=== PATIENT | female | born 1975 | race Caucasian/White ===

== ENCOUNTER 2017-03-05 09:30 | Observation (INO) | payer MEDICAID ==
[2017-03-05] MEDS ORDERED: Sodium Chloride 0.9% 1,000 ML IV ONE (10:11)
[2017-03-05 10:28] LABS: BASO % 0.3 % (0.0-2.0); EOS % 0.4 % (0.0-4.0); LYMPH # 1.2 K/uL (1.0-4.3); LYMPH % 13.3 % (20.0-40.0); MEAN CELL VOLUME 68.6 fL (81.0-99.0); MEAN CORPUSCULAR HEMOGLOBIN 21.9 pg (27.0-31.0); MONO # 0.6 K/uL (0.0-0.8); MONO % 6.1 % (0.0-10.0); RED CELL DISTRIBUTION WIDTH 14.8 % (11.5-14.5); WHITE BLOOD COUNT 9.2 K/uL (4.8-10.8)
[2017-03-05 10:34] LABS: CHLORIDE 102 mmol/L (98-107)
[2017-03-05 10:35] LABS: POTASSIUM 4.1 mmol/L (3.6-5.2); SODIUM 134 mmol/L (132-148)
--- NOTE | 2017-03-05 10:36 | C.PDOC ---
History Of Present Illness 41 y/o female with a hx of , c/o RLQ abdominal pain associated with nausea for 1 day. Patient denies vomiting, fever, chills, diarrhea, or constipation. No complaints. Time Seen by Provider: 03/05/17 10:06 Chief Complaint (Nursing): Abdominal Pain History Per: Patient History/Exam Limitations: no limitations Onset/Duration Of Symptoms: Days (1) Current Symptoms Are (Timing): Still Present Severity: Mild Location Of Pain/Discomfort: RLQ Quality Of Discomfort: "Pain" Associated Symptoms: Nausea. denies: Fever, Vomiting, Diarrhea, Constipation, Urinary Symptoms Recent travel outside of the [place]: No Additional History Per: Patient Abnormal Vaginal Bleeding: No Past Medical History Reviewed: Historical Data, Nursing Documentation, Vital Signs Vital Signs: Last Vital Signs Temp 97.8 F 03/05/17 13:55 Pulse 61 03/05/17 13:55 Resp 18 03/05/17 13:55 BP 150/90 03/05/17 13:55 Pulse Ox 99 03/05/17 15:20 - Medical History PMH: HTN Family History: States: Unknown Family Hx - Social History Hx Tobacco Use: No Hx Alcohol Use: Yes Hx Substance Use: No - Immunization History Hx Tetanus Toxoid Vaccination: No Hx Influenza Vaccination: No Hx Pneumococcal Vaccination: No Review Of Systems Except As Marked, All Systems Reviewed And Found Negative. Constitutional: Negative for: Fever, Chills Cardiovascular: Negative for: Chest Pain Respiratory: Negative for: Cough, Shortness of Breath Gastrointestinal: Positive for: Nausea, Abdominal Pain (RLQ). Negative for: Vomiting, Diarrhea, Constipation Genitourinary: Negative for: Dysuria, Hematuria, Vaginal Discharge, Vaginal Bleeding Skin: Negative for: Rash Psych: Negative for: Anxiety Physical Exam - Physical Exam Appears: Well, Non-toxic, No Acute Distress Skin: Warm, Dry Head: Atraumatic, Normacephalic Oral Mucosa: Moist Chest: Symmetrical Cardiovascular: Rhythm Regular, No Murmur Respiratory: Normal Breath Sounds, No Rales, No Rhonchi, No Wheezing Gastrointestinal/Abdominal: Soft, Tenderness (RLQ tenderness) Back: CVA Tenderness (R) Extremity: Normal ROM (x4) Neurological/Psych: Oriented x3 Gait: Steady ED Course And Treatment - Laboratory Results Result Diagrams: 03/05/17 10:22 03/05/17 10:22 O2 Sat by Pulse Oximetry: 99 (RA) Pulse Ox Interpretation: Normal Medical Decision Making Medical Decision Making: Presents for RLQ pain associated with nausea. HX of . Plans: * CT Abd/Pel IV contrast * Toradol * IV fluids * Blood labs * UA * US pelvis/ transvag DDx: Evaluation for appendicitis. PROCEDURE: CT Abdomen and Pelvis with contrast HISTORY: RLQ pain COMPARISON: Images from CT abdomen and pelvis performed with contrast 02/27/12. TECHNIQUE: Contrast dose: 100 cc Visipaque 320 Radiation dose: Total exam DLP = 298.07 MGy-cm. This CT exam was performed using one or more of the following dose reduction techniques: Automated exposure control, adjustment of the mA and/or kV according to patient size, and/or use of iterative reconstruction technique. FINDINGS: LOWER THORAX: No visible consolidation, pleural effusion, or pneumothorax. LIVER: Several too small to characterize hepatic hypodensities measuring up to approximately 9 mm Hypoattenuation of the liver compatible with hepatic steatosis. GALLBLADDER AND BILE DUCTS: Unremarkable. PANCREAS: Unremarkable. SPLEEN: Unremarkable. ADRENALS: Unremarkable. KIDNEYS AND URETERS: Region of diminished enhancement involving the right posterior kidney which may reflect pyelonephritis. Differential considerations include sequela of vascular insults/infarct or infiltrating process. 14 mm low-density left renal lesion, possibly cyst. No hydronephrosis or obstructing calculus identified. VASCULATURE: No aortic aneurysm. BOWEL: Stomach is nondistended. Lack of oral contrast limits evaluation for bowel pathology. Bowel loops appear within normal limits of caliber without evidence of obstruction. APPENDIX: The appendix appears within normal limits of caliber. No secondary signs of acute appendicitis. PERITONEUM: No significant free fluid. No definite free air. LYMPH NODES: No bulky adenopathy identified. BLADDER: Unremarkable. REPRODUCTIVE: The uterus is present. 14 mm probable left ovarian cyst. BONES: No acute osseous abnormality is detected. OTHER FINDINGS: None. IMPRESSION: Region of diminished enhancement involving the right posterior kidney which may reflect pyelonephritis. Differential considerations include sequela of vascular insults/infarct or infiltrating process/neoplasm. 14 mm low-density left renal lesion, possibly cyst. Several too small to characterize hepatic hypodensities measuring up to approximately 9 mm Hypoattenuation of the liver compatible with hepatic steatosis. Probable 14 mm left ovarian cyst. Pelvic ultrasound may be considered for further evaluation if indicated. Pelvic ultrasound History: Right lower quadrant pain. Evaluate for ovarian torsion. Comparison: None available. Technique: Real-time sonography was performed through the pelvis. Findings: Uterus: 8.6 x 4.6 x 5.7 centimeters. Heterogeneous echotexture. Anteverted. Endometrium measures 8 millimeters, within normal limits. Right ovary: 2.3 x 1.3 x 2.0 centimeters. Normal flow. Left ovary: 2.5 x 1.5 x 3.0 centimeters. Normal flow. Impression: Unremarkable sonographic evaluation of the pelvis. 3:26PM Patient has persistent pain. Will transfer to med/sx observation for pain control, results of ucx and further evaluation by Dr. Davis Spoke to Dr. Diamante Holden Disposition - Disposition Disposition: HOSPITALIZED Disposition Time: 15:28 Condition: FAIR Forms: [facility] (Estonian) - Clinical Impression Clinical Impression: Abdominal pain - Scribe Statement The provider has reviewed the documentation as recorded by the Scribe Adryan roberts All medical record entries made by the Musaibdalia were at my direction and personally dictated by me. I have reviewed the chart and agree that the record accurately reflects my personal performance of the history, physical exam, medical decision making, and the department course for this patient. I have also personally directed, reviewed, and agree with the discharge instructions and disposition.
[2017-03-05 10:37] LABS: ALB/GLOB RATIO 1.1 (1.0-2.1); ALKALINE PHOSPHATASE 57 U/L (38-126); AST/SGOT 49 U/L (14-36); BILIRUBIN,TOTAL 0.7 mg/dL (0.2-1.3); CARBON DIOXIDE 23 mmol/L (22-30); GFR AFRICAN-AMERICAN > 60; RBC URINE 3 /hpf (0-3); TOTAL PROTEIN 8.7 g/dL (6.3-8.3); URINE BACTERIA RARE (<OCC); URINE BILIRUBIN NEGATIVE (NEGATIVE); URINE BLOOD 2+ (NEGATIVE); URINE COLOR Yellow (YELLOW); URINE GLUCOSE (UA) NORMAL (Normal); URINE KETONE TRACE mg/dL (NEGATIVE); URINE LEUKOCYTE ESTERASE NEG Leu/uL (Negative); URINE PROTEIN 1+ mg/dL (NEGATIVE); URINE UROBILINOGEN NORMAL mg/dL (0.2-1.0); WBC URINE 3 /hpf (0-5)
[2017-03-05 10:38] LABS: ALT/SGPT 55 U/L (9-52); BLOOD UREA NITROGEN 9 mg/dL (7-17); CALCIUM 9.4 mg/dl (8.6-10.4); GLUCOSE,RANDOM 101 mg/dL (65-105)
[2017-03-05] MEDS ORDERED: Sodium Chloride 0.9% 1,000 ML ONE (10:46)
[2017-03-05] MEDS ORDERED: Iodixanol 320 MG/ML 100 ML BOTTLE IV ONE (12:12)
--- NOTE | 2017-03-05 12:53 | CT ---
PROCEDURE: CT Abdomen and Pelvis with contrast HISTORY: RLQ pain COMPARISON: Images from CT abdomen and pelvis performed with contrast 02/27/12. TECHNIQUE: Contrast dose: 100 cc Visipaque 320 Radiation dose: Total exam DLP = 298.07 MGy-cm. This CT exam was performed using one or more of the following dose reduction techniques: Automated exposure control, adjustment of the mA and/or kV according to patient size, and/or use of iterative reconstruction technique. FINDINGS: LOWER THORAX: No visible consolidation, pleural effusion, or pneumothorax. LIVER: Several too small to characterize hepatic hypodensities measuring up to approximately 9 mm Hypoattenuation of the liver compatible with hepatic steatosis. GALLBLADDER AND BILE DUCTS: Unremarkable. PANCREAS: Unremarkable. SPLEEN: Unremarkable. ADRENALS: Unremarkable. KIDNEYS AND URETERS: Region of diminished enhancement involving the right posterior kidney which may reflect pyelonephritis. Differential considerations include sequela of vascular insults/infarct or infiltrating process. 14 mm low-density left renal lesion, possibly cyst. No hydronephrosis or obstructing calculus identified. VASCULATURE: No aortic aneurysm. BOWEL: Stomach is nondistended. Lack of oral contrast limits evaluation for bowel pathology. Bowel loops appear within normal limits of caliber without evidence of obstruction. APPENDIX: The appendix appears within normal limits of caliber. No secondary signs of acute appendicitis. PERITONEUM: No significant free fluid. No definite free air. LYMPH NODES: No bulky adenopathy identified. BLADDER: Unremarkable. REPRODUCTIVE: The uterus is present. 14 mm probable left ovarian cyst. BONES: No acute osseous abnormality is detected. OTHER FINDINGS: None. IMPRESSION: Region of diminished enhancement involving the right posterior kidney which may reflect pyelonephritis. Differential considerations include sequela of vascular insults/infarct or infiltrating process/neoplasm. 14 mm low-density left renal lesion, possibly cyst. Several too small to characterize hepatic hypodensities measuring up to approximately 9 mm Hypoattenuation of the liver compatible with hepatic steatosis. Probable 14 mm left ovarian cyst. Pelvic ultrasound may be considered for further evaluation if indicated.
[2017-03-05] MEDS ORDERED: Morphine 4 MG/ML VIAL ONE (14:46)
--- NOTE | 2017-03-05 14:50 | US ---
Pelvic ultrasound History: Right lower quadrant pain. Evaluate for ovarian torsion. Comparison: None available. Technique: Real-time sonography was performed through the pelvis. Findings: Uterus: 8.6 x 4.6 x 5.7 centimeters. Heterogeneous echotexture. Anteverted. Endometrium measures 8 millimeters, within normal limits. Right ovary: 2.3 x 1.3 x 2.0 centimeters. Normal flow. Left ovary: 2.5 x 1.5 x 3.0 centimeters. Normal flow. Impression: Unremarkable sonographic evaluation of the pelvis.
[2017-03-05] MEDS ORDERED: Morphine 4 MG/ML VIAL IVP PRN (21:45)
--- NOTE | 2017-03-05 21:58 | CP.PCM.PN ---
Subjective - Date & Time of Evaluation Date of Evaluation: 03/05/17 Objective - Vital Signs/Intake and Output Vital Signs (last 24 hours): Temp Pulse Resp BP Pulse Ox 97.7 F 61 20 152/90 H 100 03/05/17 17:49 03/05/17 17:49 03/05/17 17:49 03/05/17 17:49 03/05/17 17:49 - Medications Medications: Current Medications Ceftriaxone Sodium 1 gm/ (Sodium Chloride) 100 mls @ 100 mls/hr IVPB DAILY [facility] Metoprolol Succinate (Toprol Xl) 25 mg PO DAILY [facility] Morphine Sulfate (Morphine) 4 mg IVP Q4 PRN PRN Reason: Pain, moderate (4-7) Morphine Sulfate (Morphine) 2 mg IVP Q6 [facility] - Labs Labs: 03/05/17 10:22 03/05/17 10:22
[2017-03-05] MEDS: Ciprofloxacin 400mg/200ml D5W 400 MG/200 ML BAG IVPB SCH (22:50)
[2017-03-06] MEDS: metroNIDAZOLE IV 500 mg/100 ml 500 MG/100 ML BAG IVPB SCH ×3 (05:58→21:26)
--- NOTE | 2017-03-06 09:45 | CP.PCM.PN ---
Subjective - Date & Time of Evaluation Date of Evaluation: 03/06/17 Time of Evaluation: 07:35 - Subjective Subjective: PGY3 Medicine Note - Dr. Shira Cazares's service: Patient seen and examined at bedside this AM. Patient reports right lower abdominal pain wrapping around her flank to her back. Patient says this has never happened before. Pain started a few days ago. Patient denies fever, chills, chest pain, SOB, nausea, vomiting, diarrhea, constipation, dysuria, hematuria. Objective - Vital Signs/Intake and Output Vital Signs (last 24 hours): Temp Pulse Resp BP Pulse Ox 98.9 F 75 20 121/77 97 03/06/17 07:49 03/06/17 07:49 03/06/17 07:49 03/06/17 07:49 03/06/17 07:49 Intake and Output: 03/06/17 03/06/17 06:59 18:59 Intake Total 800 Balance 800 - Medications Medications: Current Medications Ceftriaxone Sodium 1 gm/ (Sodium Chloride) 100 mls @ 100 mls/hr IVPB DAILY [facility] Ciprofloxacin (Cipro 400mg/200ml Dsw) 400 mg in 200 mls @ 133 mls/hr IVPB Q12H [facility] Last Admin: 03/05/17 22:50 Dose: 133 mls/hr Metronidazole (Flagyl) 500 mg in 100 mls @ 100 mls/hr IVPB Q8 [facility] Last Admin: 03/06/17 05:58 Dose: 100 mls/hr Metoprolol Succinate (Toprol Xl) 25 mg PO DAILY [facility] Morphine Sulfate (Morphine) 4 mg IVP Q4 PRN PRN Reason: Pain, moderate (4-7) Morphine Sulfate (Morphine) 2 mg IVP Q6 [facility] Pneumococcal Polyvalent Vaccine (Pneumovax 23 Vaccine) 0.5 ml IM .ONCE ONE Stop: 03/07/17 10:01 - Labs Labs: 03/05/17 10:22 03/05/17 10:22 - Constitutional Appears: Non-toxic, No Acute Distress - Head Exam Head Exam: NORMAL INSPECTION - Eye Exam Eye Exam: EOMI - ENT Exam ENT Exam: Mucous Membranes Moist - Respiratory Exam Respiratory Exam: Clear to Ausculation Bilateral, NORMAL BREATHING PATTERN. absent: Rales, Rhonchi, Wheezes - Cardiovascular Exam Cardiovascular Exam: REGULAR RHYTHM, +S1, +S2. absent: Gallop, Rubs, Murmur - GI/Abdominal Exam GI & Abdominal Exam: Soft, Normal Bowel Sounds. absent: Tenderness - Back Exam Back Exam: absent: CVA tenderness (L), CVA tenderness (R) - Neurological Exam Neurological Exam: Alert, Awake, Oriented x3 - Psychiatric Exam Psychiatric exam: Normal Affect, Normal Mood - Skin Skin Exam: Normal Color, Warm Assessment and Plan - Assessment and Plan (Free Text) Assessment: Kidney Lesions Abdomen/ Pelvis CT 03/05/17 - region of diminished enhancement involving the right posterior kidney which may reflect pyelnephritis. Differential considerations include sequela of vascular insults/infarct or infiltrating process/ neoplasm. 14mmlow density left renal lesion, possibly a cyst. Several too small to characterize hepatic hypodensities measuring up to approximately 9mm. Compatibkle with hepatic steatosis. Probable 14mm Left ovarian cyst ( please see full report) UA: 1+ protein, 2+ blood BUN/Cr: 9/0.5 Abdomen Pelvic/transvaginal US 03/05: unremarkable Urology consult - Dr. Davis - f/u recommendations Ceftriaxone 1gm IVPB daily Cipro 400mg IVPB Q12H Flagyl 500mg IVPB Q8 Morphine 4mg IVP Q4 PRN moderate pain Prophylaxis Protonix 40mg PO daily SCDs b/l All medical management per dr. Shira Cazares
[2017-03-06] MEDS ORDERED: Enoxaparin 40 mg Syringe SC SCH (10:00)
[2017-03-06] MEDS: Metoprolol Succinate 25 mg XL Tab PO SCH (10:13)
[2017-03-06] MEDS: Ciprofloxacin 400mg/200ml D5W 400 MG/200 ML BAG IVPB SCH ×2 (10:13→23:00)
[2017-03-06] MEDS: Pantoprazole 40 mg EC Tab PO SCH (10:14)
--- NOTE | 2017-03-06 10:21 | CP.PCM.PN ---
Subjective - Date & Time of Evaluation Date of Evaluation: 03/06/17 Time of Evaluation: :17 - Subjective Subjective: 41 year old female admitted with Right lower quadrent pain. CT with contrast shows a wedge shape flow defect of unknown sig,Radiology cannot ro tumor and suggest possibility of ,infarct ,pylo or tumor. mSuggest treat with a full 10 day course of antibiotics, then repeat CT(thre phase study) in 1 month. Ryan Objective - Vital Signs/Intake and Output Vital Signs (last 24 hours): Temp Pulse Resp BP Pulse Ox 98.9 F 75 20 121/77 97 03/06/17 07:49 03/06/17 07:49 03/06/17 07:49 03/06/17 07:49 03/06/17 07:49 Intake and Output: 03/06/17 03/06/17 06:59 18:59 Intake Total 800 Balance 800 - Medications Medications: Current Medications Ceftriaxone Sodium 1 gm/ (Sodium Chloride) 100 mls @ 100 mls/hr IVPB DAILY [facility] Last Admin: 03/06/17 10:14 Dose: 100 mls/hr Ciprofloxacin (Cipro 400mg/200ml Dsw) 400 mg in 200 mls @ 133 mls/hr IVPB Q12H [facility] Last Admin: 03/06/17 10:13 Dose: 133 mls/hr Metronidazole (Flagyl) 500 mg in 100 mls @ 100 mls/hr IVPB Q8 [facility] Last Admin: 03/06/17 05:58 Dose: 100 mls/hr Metoprolol Succinate (Toprol Xl) 25 mg PO DAILY [facility] Last Admin: 03/06/17 10:13 Dose: 25 mg Morphine Sulfate (Morphine) 4 mg IVP Q4 PRN PRN Reason: Pain, moderate (4-7) Morphine Sulfate (Morphine) 2 mg IVP Q6 [facility] Pantoprazole Sodium (Protonix Ec Tab) 40 mg PO DAILY [facility] Last Admin: 03/06/17 10:14 Dose: 40 mg Pneumococcal Polyvalent Vaccine (Pneumovax 23 Vaccine) 0.5 ml IM .ONCE ONE Stop: 03/07/17 10:01 - Labs Labs: 03/05/17 10:22 03/05/17 10:22
[2017-03-06 10:46] LABS: BASO % 0.4 % (0.0-2.0); EOS # 0.1 K/uL (0.0-0.7); EOS % 1.1 % (0.0-4.0); HEMATOCRIT 39.6 % (34.0-47.0); LYMPH # 1.1 K/uL (1.0-4.3); LYMPH % 11.9 % (20.0-40.0); MEAN CELL VOLUME 68.3 fL (81.0-99.0); MEAN CORPUSCULAR HEMOGLOBIN 21.9 pg (27.0-31.0); MEAN CORPUSCULAR HGB CONC 32.1 g/dL (33.0-37.0); MEAN PLATELET VOLUME 9.8 fL (7.2-11.7); MONO # 0.5 K/uL (0.0-0.8); MONO % 4.9 % (0.0-10.0); NRBC % 0.2 % (0.0-2.0); RED CELL DISTRIBUTION WIDTH 14.4 % (11.5-14.5); WHITE BLOOD COUNT 9.3 K/uL (4.8-10.8)
[2017-03-06 10:53] LABS: CHLORIDE 100 mmol/L (98-107); POTASSIUM 3.9 mmol/L (3.6-5.2); SODIUM 132 mmol/L (132-148)
[2017-03-06 10:55] LABS: ALB/GLOB RATIO 1.1 (1.0-2.1); AST/SGOT 42 U/L (14-36); BILIRUBIN,TOTAL 0.9 mg/dL (0.2-1.3); CARBON DIOXIDE 24 mmol/L (22-30); GFR AFRICAN-AMERICAN > 60; TOTAL PROTEIN 7.5 g/dL (6.3-8.3)
[2017-03-06 10:56] LABS: ALKALINE PHOSPHATASE 45 U/L (38-126); ALT/SGPT 62 U/L (9-52); BLOOD UREA NITROGEN 7 mg/dL (7-17); CALCIUM 9.1 mg/dl (8.6-10.4); GLUCOSE,RANDOM 104 mg/dL (65-105)
[2017-03-06 16:28] VITALS: PULSE 70
--- NOTE | 2017-03-06 18:35 | CP.PCM.PN ---
Subjective - Date & Time of Evaluation Date of Evaluation: 03/06/17 Time of Evaluation: 08:20 - Subjective Subjective: clinically same Objective - Vital Signs/Intake and Output Vital Signs (last 24 hours): Temp Pulse Resp BP Pulse Ox 98.7 F 70 20 106/68 98 03/06/17 15:00 03/06/17 15:00 03/06/17 15:00 03/06/17 15:00 03/06/17 15:00 Intake and Output: 03/06/17 03/06/17 06:59 18:59 Intake Total 800 Balance 800 - Medications Medications: Current Medications Heparin Sodium (Porcine) (Heparin) 5,000 units SC Q12 [facility] Ceftriaxone Sodium 1 gm/ (Sodium Chloride) 100 mls @ 100 mls/hr IVPB DAILY [facility] Last Admin: 03/06/17 10:14 Dose: 100 mls/hr Ciprofloxacin (Cipro 400mg/200ml Dsw) 400 mg in 200 mls @ 133 mls/hr IVPB Q12H [facility] Last Admin: 03/06/17 10:13 Dose: 133 mls/hr Metronidazole (Flagyl) 500 mg in 100 mls @ 100 mls/hr IVPB Q8 [facility] Last Admin: 03/06/17 13:22 Dose: 100 mls/hr Metoprolol Succinate (Toprol Xl) 25 mg PO DAILY [facility] Last Admin: 03/06/17 10:13 Dose: 25 mg Morphine Sulfate (Morphine) 4 mg IVP Q4 PRN PRN Reason: Pain, moderate (4-7) Morphine Sulfate (Morphine) 2 mg IVP Q6 PRN Pantoprazole Sodium (Protonix Ec Tab) 40 mg PO DAILY [facility] Last Admin: 03/06/17 10:14 Dose: 40 mg Pneumococcal Polyvalent Vaccine (Pneumovax 23 Vaccine) 0.5 ml IM .ONCE ONE Stop: 03/07/17 10:01 - Labs Labs: 03/06/17 10:35 03/06/17 10:35 - Constitutional Appears: Well - Head Exam Head Exam: ATRAUMATIC, NORMAL INSPECTION, NORMOCEPHALIC - Eye Exam Eye Exam: EOMI, Normal appearance, PERRL Pupil Exam: NORMAL ACCOMODATION, PERRL - ENT Exam ENT Exam: Mucous Membranes Moist, Normal Exam - Neck Exam Neck Exam: Full ROM, Normal Inspection. absent: Lymphadenopathy - Respiratory Exam Respiratory Exam: Decreased Breath Sounds - Cardiovascular Exam Cardiovascular Exam: REGULAR RHYTHM, +S1, +S2 - GI/Abdominal Exam GI & Abdominal Exam: Soft, Diminished Bowel Sounds - Rectal Exam Rectal Exam: Deferred
[2017-03-07] MEDS: metroNIDAZOLE IV 500 mg/100 ml 500 MG/100 ML BAG IVPB SCH ×2 (05:26→13:07)
[2017-03-07 07:39] LABS: BASO % 0.3 % (0.0-2.0); EOS # 0.2 K/uL (0.0-0.7); EOS % 1.9 % (0.0-4.0); HEMATOCRIT 38.2 % (34.0-47.0); LYMPH # 1.5 K/uL (1.0-4.3); LYMPH % 15.2 % (20.0-40.0); MEAN CELL VOLUME 68.8 fL (81.0-99.0); MEAN CORPUSCULAR HEMOGLOBIN 22.2 pg (27.0-31.0); MEAN CORPUSCULAR HGB CONC 32.3 g/dL (33.0-37.0); MEAN PLATELET VOLUME 9.6 fL (7.2-11.7); MONO # 0.9 K/uL (0.0-0.8); MONO % 8.7 % (0.0-10.0); NRBC % 0.1 % (0.0-2.0); RED CELL DISTRIBUTION WIDTH 14.6 % (11.5-14.5); WHITE BLOOD COUNT 9.9 K/uL (4.8-10.8)
[2017-03-07 08:25] VITALS: BP 119/79; RESP 20; TEMP 98.5; O2SAT 96
[2017-03-07 08:25] LABS: CHLORIDE 100 mmol/L (98-107); SODIUM 134 mmol/L (132-148)
[2017-03-07 08:27] LABS: GFR AFRICAN-AMERICAN > 60
[2017-03-07 08:28] LABS: ALB/GLOB RATIO 1.1 (1.0-2.1); ALKALINE PHOSPHATASE 50 U/L (38-126); ALT/SGPT 56 U/L (9-52); AST/SGOT 32 U/L (14-36); BILIRUBIN,TOTAL 0.6 mg/dL (0.2-1.3); BLOOD UREA NITROGEN 9 mg/dL (7-17); CARBON DIOXIDE 23 mmol/L (22-30); GLUCOSE,RANDOM 92 mg/dL (65-105); TOTAL PROTEIN 7.7 g/dL (6.3-8.3)
--- NOTE | 2017-03-07 09:23 | CP.PCM.PN ---
Subjective - Date & Time of Evaluation Date of Evaluation: 03/07/17 Time of Evaluation: 07:10 - Subjective Subjective: PGY3 Medicine Note - Dr. Shira Cazares's service: Patient seen and examined at bedside this AM. Patient reports resolved right lower abdominal pain wrapping around her flank to her back. Patient says the pain stopped yesterday. Patient denies fever, chills, chest pain, SOB, nausea, vomiting, diarrhea, constipation, dysuria, hematuria. Objective - Vital Signs/Intake and Output Vital Signs (last 24 hours): Temp Pulse Resp BP Pulse Ox 98.5 F 70 20 119/79 96 03/07/17 08:00 03/07/17 08:00 03/07/17 08:00 03/07/17 08:00 03/07/17 08:00 Intake and Output: 03/07/17 03/07/17 06:59 18:59 Intake Total 420 Balance 420 - Medications Medications: Current Medications Heparin Sodium (Porcine) (Heparin) 5,000 units SC Q12 [facility] Last Admin: 03/06/17 21:28 Dose: Not Given Ceftriaxone Sodium 1 gm/ (Sodium Chloride) 100 mls @ 100 mls/hr IVPB DAILY [facility] Last Admin: 03/06/17 10:14 Dose: 100 mls/hr Ciprofloxacin (Cipro 400mg/200ml Dsw) 400 mg in 200 mls @ 133 mls/hr IVPB Q12H [facility] Last Admin: 03/06/17 23:00 Dose: 133 mls/hr Metronidazole (Flagyl) 500 mg in 100 mls @ 100 mls/hr IVPB Q8 [facility] Last Admin: 03/07/17 05:26 Dose: 100 mls/hr Metoprolol Succinate (Toprol Xl) 25 mg PO DAILY [facility] Last Admin: 03/06/17 10:13 Dose: 25 mg Morphine Sulfate (Morphine) 4 mg IVP Q4 PRN PRN Reason: Pain, moderate (4-7) Morphine Sulfate (Morphine) 2 mg IVP Q6 PRN Pantoprazole Sodium (Protonix Ec Tab) 40 mg PO DAILY [facility] Last Admin: 03/06/17 10:14 Dose: 40 mg Pneumococcal Polyvalent Vaccine (Pneumovax 23 Vaccine) 0.5 ml IM .ONCE ONE Stop: 03/07/17 10:01 - Labs Labs: 03/07/17 07:06 03/07/17 07:06 - Constitutional Appears: Non-toxic, No Acute Distress - Head Exam Head Exam: NORMAL INSPECTION - Eye Exam Eye Exam: EOMI - ENT Exam ENT Exam: Mucous Membranes Moist - Respiratory Exam Respiratory Exam: Clear to Ausculation Bilateral, NORMAL BREATHING PATTERN. absent: Rales, Rhonchi, Wheezes - Cardiovascular Exam Cardiovascular Exam: REGULAR RHYTHM, +S1, +S2. absent: Gallop, Rubs, Murmur - GI/Abdominal Exam GI & Abdominal Exam: Soft, Normal Bowel Sounds. absent: Tenderness - Extremities Exam Extremities Exam: absent: Pedal Edema - Back Exam Back Exam: absent: CVA tenderness (L), CVA tenderness (R) - Neurological Exam Neurological Exam: Alert, Awake, Oriented x3 - Psychiatric Exam Psychiatric exam: Normal Affect, Normal Mood - Skin Skin Exam: Normal Color, Warm Assessment and Plan - Assessment and Plan (Free Text) Assessment: Kidney Lesions Abdomen/ Pelvis CT 03/05/17 - region of diminished enhancement involving the right posterior kidney which may reflect pyelnephritis. Differential considerations include sequela of vascular insults/infarct or infiltrating process/ neoplasm. 14mmlow density left renal lesion, possibly a cyst. Several too small to characterize hepatic hypodensities measuring up to approximately 9mm. Compatibkle with hepatic steatosis. Probable 14mm Left ovarian cyst ( please see full report) UA: 1+ protein, 2+ blood BUN/Cr: 9/0.5 urine culture negative Abdomen Pelvic/transvaginal US 03/05: unremarkable Urology consult - Dr. Davis - help appreciated - recommends completing a 10 day course of Ciprofloxacin Ceftriaxone 1gm IVPB daily day 2 Cipro 400mg IVPB Q12H day 3 Flagyl 500mg IVPB Q8 day 2 Morphine 4mg IVP Q4 PRN moderate pain Patient to be discharged today with Cipro 500mg PO BID x7 more days and florastor BID for 9 days HTN Continue home Metoprolol Succinate 25mg PO daily Prophylaxis Protonix 40mg PO daily SCDs b/l All medical management per dr. Shira Cazares
[2017-03-07] MEDS ORDERED: Pneumococcal 23-Valent Vaccine IM ONE (10:00)
[2017-03-07] MEDS ORDERED: Influenza Vaccine 60 mcg/0.5 mL SYR (4YR UP) IM ONE (10:00)
[2017-03-07] MEDS: Pantoprazole 40 mg EC Tab PO SCH (10:02)
[2017-03-07] MEDS: Metoprolol Succinate 25 mg XL Tab PO SCH (10:02)
[2017-03-07] MEDS: Ciprofloxacin 400mg/200ml D5W 400 MG/200 ML BAG IVPB SCH (10:04)
--- NOTE | 2017-03-07 13:20 | CON ---
DATE: 03/05/2017 REASON FOR CONSULTATION: Abnormal CAT scan of the kidney. HISTORY OF PRESENT ILLNESS: The patient was admitted to the hospital with abdominal pain and underwent CAT scan of the abdomen and pelvis. The CAT scan showed a wedge-shaped area of the kidney on the right side that does not show with IV contrast. The radiologist is not clear on the etiology; possibilities of segmental infarct, pyelonephritis, or tumor were raised. The patient has been on Cipro since being in the hospital and her abdominal pain has improved. She gives no history of renal trauma. 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 She has no history of prior pyelonephritis, no history of GI illness. REVIEW OF SYSTEMS: RESPIRATORY: The patient has no shortness of breath, wheezing, more difficulty in breathing. HEART: She has no palpitation, chest pain or swelling of her extremities. GI: The patient has no nausea or vomiting. She is complaining of right lower quadrant pain. : The patient is not complaining of any CVA tenderness. She has no history of prior pyelonephritis. DIRECTOR OF CLINICAL EDUCATION: The patient gives no history of DIRECTOR OF CLINICAL EDUCATION problems or surgery. EXTREMITIES: The patient has no history of orthopedic injury or joint dysfunction. No gait disturbance. NEUROLOGIC: The patient has no paresthesias. She has no dizziness. She has no weakness in any extremities. She has no difficulty in expressing or speaking. I have reviewed the chart and the CAT scan films and report. IMPRESSION: Wedge-shaped irregular filling defect in the right kidney with no evidence of contrast entering this area. PLAN: It appears that this may be due to a recent pyelonephritis; however, I suggest that the patient be treated with a full 7-10 day course of antibiotics and after approximately one month, a repeat CAT scan with IV contrast can be done. If the patient becomes hypertensive or exhibits other complaints, she may be sent for a Doppler evaluation of her renal artery to assure that it is patent. I have discussed my recommendations and findings with Dr. Simone Holden. Julio Cesar Davis MD
--- NOTE | 2017-03-07 20:18 | CP.PCM.PN ---
Subjective - Date & Time of Evaluation Date of Evaluation: 03/07/17 Time of Evaluation: 13:40 - Subjective Subjective: clinically same Objective - Vital Signs/Intake and Output Vital Signs (last 24 hours): Temp Pulse Resp BP Pulse Ox 98.5 F 70 20 119/79 96 03/07/17 08:00 03/07/17 08:00 03/07/17 08:00 03/07/17 08:00 03/07/17 08:00 Intake and Output: 03/07/17 03/08/17 18:59 06:59 Intake Total 920 Balance 920 - Labs Labs: 03/07/17 07:06 03/07/17 07:06
== END 2017-03-07 15:20 | disposition home or self-care (01) ==
LOC: C.ER 09:30 → C.9E 15:29 → C.3T 16:33
PROVIDERS: ADMIT Internal Medicine Nephrology; ATTEND Internal Medicine Nephrology
DX: R10.31 Right lower quadrant pain (principal); N28.9 Disorder of kidney and ureter, unspecified; N83.202 Unspecified ovarian cyst, left side; I10 Essential (primary) hypertension
CPT/HCPCS: 36415; 74177; 76830; 76856; 80053; 81001; 83690; 84703; 85025; 87086; 96360; 96374; 99285; G0378; J0696; J0744; J1885; J2270; J7040; Q9967